=== PATIENT | female | born 1965 | race African-American/Black ===

== ENCOUNTER 2023-01-29 19:00 | Inpatient (IN) | payer MEDICAID ==
[~2023-01-29] VITALS: Ht 170.2 cm; Wt 94.8 kg
[~2023-01-29 19:00] MED LIST: ASPI-1160 PO; CLOP-31 PO; LIP40 PO
[2023-01-29 20:00] VITALS: BP 169/80; PULSE 82; RESP 17; TEMP 99.9
[2023-01-29 20:15] VITALS: BP 167/80; PULSE 82; RESP 18; TEMP 99
[2023-01-29] MEDS ORDERED: MAGNESIUM/ALUMINUM HYDROXIDE/SIMETHICONE 30ML UDC PO PRN (20:30)
[2023-01-29] MEDS ORDERED: ONDANSETRON HCL 4MG/2ML INJ IV PRN (20:30)
[2023-01-29] MEDS ORDERED: SODIUM CHLORIDE 1000MG TABLET PO PRN (20:30)
[2023-01-29] MEDS ORDERED: ACETAMINOPHEN 325MG TABLET PO PRN (20:30)
[2023-01-29] MEDS ORDERED: GUAIFENESIN 200MG/10ML SUGAR FREE UDC PO PRN (20:30)
[2023-01-29] MEDS ORDERED: IPRATROPIUM/ALBUTEROL 0.5-3(2.5)MG/3ML NEB HHN PRN (20:30)
[2023-01-29] MEDS ORDERED: DOCUSATE SODIUM 100MG CAPSULE PO PRN (20:30)
[2023-01-29] MEDS ORDERED: DEXTROSE 50% WATER 50ML SYRINGE IV PRN (21:00)
[2023-01-29] MEDS ORDERED: INSULIN GLARGINE 100 UNITS/ML SUBCUT SCH (22:00)
[2023-01-29] MEDS: BLOOD SUGAR DIAGNOSTIC STRIP TEST SCH (23:27)
[2023-01-29] MEDS: ATORVASTATIN CALCIUM 40MG TABLET PO SCH (23:27)
[2023-01-29] MEDS: FAMOTIDINE 20MG TABLET PO SCH (23:30)
[2023-01-30] MEDS: INSULIN LISPRO 100 UNITS/ML SUBCUT SCH ×7 (00:04→22:00)
[2023-01-30] MEDS: SODIUM CHLORIDE 0.9% 1,000 ML IV SCH ×4 (02:42→18:53)
[2023-01-30 06:49] LABS: BASOPHILS % 0.2 % (0.0-2.0); DIFFERENTIAL COMMENT 0; EOSINOPHILS % 1.9 % (0.0-5.0); HEMATOCRIT. 34.3 % (36.0-48.0); HEMOGLOBIN. 11.4 g/dL (12.0-16.0); LYMPHOCYTES % 24.6 % (20.0-50.0); MEAN CORPUSCULAR HEMOGLOBIN 24.9 pg (28.0-32.0); MEAN CORPUSCULAR HGB CONC 33.2 g/dL (31.0-37.0); MEAN CORPUSCULAR VOLUME 75.2 fL (81.0-99.0); MEAN PLATELET VOLUME 9.7 fl (7.4-10.4); MONOCYTES % 9.3 % (2.0-8.0); PLATELET 156 x1000/uL (130-400); RED BLOOD CELL COUNT 4.56 mill/uL (4.2-5.4); RED CELL DISTRIBUTION WIDTH 13.4 % (11.6-14.6); WHITE BLOOD COUNT 5.3 x1000/uL (4.5-11.0)
[2023-01-30] MEDS: BLOOD SUGAR DIAGNOSTIC STRIP TEST SCH ×4 (07:00→21:30)
[2023-01-30 08:00] VITALS: BP 161/69; PULSE 69; RESP 20; TEMP 97.9
[2023-01-30 08:12] LABS: CHLORIDE 112 mEq/L (98-107); INDEX HEMOLYSI 1 (1-3); INDEX ICTERIC 1 (1-4); INDEX LIPEMIC 1 (1-3); POTASSIUM 3.6 mEq/L (3.5-5.1); SODIUM 141 mEq/L (136-145)
[2023-01-30 08:21] LABS: ALANINE AMINOTRANSFERASE 15 IU/L (13-61); ALBUMIN 2.9 g/dL (3.4-5.0); ASPARTATE AMINOTRANSFERASE 13 IU/L (15-37); BILIRUBIN TOTAL 0.4 mg/dL (0.1-1.0); CARBON DIOXIDE 23 mEq/L (21-32); CREATININE 0.6 mg/dL (0.6-1.3); GLUCOSE 222 mg/dL (70-105); PROTEIN TOTAL 6.1 g/dL (6.0-8.3); UREA NITROGEN BLOOD 10 mg/dL (7-21)
[2023-01-30] MEDS: FAMOTIDINE 20MG TABLET PO SCH ×2 (09:00→21:59)
[2023-01-30] MEDS: ASPIRIN 81MG TABLET PO SCH (09:35)
[2023-01-30] MEDS: CLOPIDOGREL 75MG TABLET PO SCH (09:36)
[2023-01-30] MEDS: ENOXAPARIN 30MG/0.3ML SYR SUBCUT SCH ×2 (09:37→22:00)
[2023-01-30] MEDS: ATORVASTATIN CALCIUM 40MG TABLET PO SCH (21:58)
[2023-01-30] MEDS: INSULIN GLARGINE 100 UNITS/ML SUBCUT SCH (22:00)
[2023-01-30] MEDS: ACETAMINOPHEN 325MG TABLET PO PRN (22:41)
[2023-01-31] MEDS: BLOOD SUGAR DIAGNOSTIC STRIP TEST SCH ×4 (06:30→21:00)
[2023-01-31] MEDS: SODIUM CHLORIDE 0.9% 1,000 ML IV SCH ×3 (07:20→20:40)
[2023-01-31 08:00] VITALS: BP 150/58; PULSE 64; RESP 18; TEMP 98.2
[2023-01-31] MEDS: ASPIRIN 81MG TABLET PO SCH (09:02)
[2023-01-31] MEDS: CLOPIDOGREL 75MG TABLET PO SCH (09:02)
[2023-01-31] MEDS: FAMOTIDINE 20MG TABLET PO SCH ×2 (09:02→22:09)
[2023-01-31] MEDS: ENOXAPARIN 30MG/0.3ML SYR SUBCUT SCH ×2 (09:03→22:11)
[2023-01-31] MEDS: INSULIN LISPRO 100 UNITS/ML SUBCUT SCH ×6 (11:35→22:27)
[2023-01-31 19:57] VITALS: BP 157/64; PULSE 73; RESP 20; TEMP 97.1
[2023-01-31] MEDS: ATORVASTATIN CALCIUM 40MG TABLET PO SCH (22:09)
[2023-01-31] MEDS: INSULIN GLARGINE 100 UNITS/ML SUBCUT SCH (22:17)
[2023-02-01] MEDS: SODIUM CHLORIDE 0.9% 1,000 ML IV SCH ×4 (03:20→23:20)
[2023-02-01] MEDS: BLOOD SUGAR DIAGNOSTIC STRIP TEST SCH ×4 (06:30→21:00)
[2023-02-01] MEDS: INSULIN LISPRO 100 UNITS/ML SUBCUT SCH ×7 (07:58→21:00)
[2023-02-01 08:00] VITALS: BP 144/64; PULSE 81; RESP 20; TEMP 98.1
[2023-02-01] MEDS: ASPIRIN 81MG TABLET PO SCH (09:55)
[2023-02-01] MEDS: ENOXAPARIN 30MG/0.3ML SYR SUBCUT SCH ×2 (09:55→22:53)
[2023-02-01] MEDS: FAMOTIDINE 20MG TABLET PO SCH ×2 (09:55→22:54)
[2023-02-01] MEDS: CLOPIDOGREL 75MG TABLET PO SCH (09:55)
[2023-02-01 12:27] LABS: BASOPHILS % 0.5 % (0.0-2.0); DIFFERENTIAL COMMENT 0; EOSINOPHILS % 2.6 % (0.0-5.0); HEMATOCRIT. 33.5 % (36.0-48.0); LYMPHOCYTES % 29.4 % (20.0-50.0); MEAN CORPUSCULAR HEMOGLOBIN 24.9 pg (28.0-32.0); MEAN CORPUSCULAR HGB CONC 32.9 g/dL (31.0-37.0); MEAN CORPUSCULAR VOLUME 75.6 fL (81.0-99.0); MEAN PLATELET VOLUME 9.4 fl (7.4-10.4); MONOCYTES % 8.4 % (2.0-8.0); NEUTROPHILS % 59.1 % (40.0-76.0); PLATELET 154 x1000/uL (130-400); RED BLOOD CELL COUNT 4.43 mill/uL (4.2-5.4); RED CELL DISTRIBUTION WIDTH 13.5 % (11.6-14.6)
[2023-02-01 12:34] LABS: CHLORIDE 115 mEq/L (98-107); INDEX HEMOLYSI 1 (1-3); INDEX ICTERIC 1 (1-4); INDEX LIPEMIC 1 (1-3); POTASSIUM 3.8 mEq/L (3.5-5.1); SODIUM 144 mEq/L (136-145)
[2023-02-01 12:42] LABS: ALANINE AMINOTRANSFERASE 35 IU/L (13-61); ALBUMIN 2.9 g/dL (3.4-5.0); ASPARTATE AMINOTRANSFERASE 18 IU/L (15-37); BILIRUBIN TOTAL 0.7 mg/dL (0.1-1.0); CALCIUM 8.8 mg/dL (8.5-10.1); CARBON DIOXIDE 25 mEq/L (21-32); CREATININE 0.6 mg/dL (0.6-1.3); GLUCOSE 158 mg/dL (70-105); PROTEIN TOTAL 6.1 g/dL (6.0-8.3); UREA NITROGEN BLOOD 8 mg/dL (7-21)
[2023-02-01 20:00] VITALS: BP 153/72; PULSE 72; RESP 19; TEMP 98
[2023-02-01] MEDS: INSULIN GLARGINE 100 UNITS/ML SUBCUT SCH (22:00)
[2023-02-01] MEDS: ATORVASTATIN CALCIUM 40MG TABLET PO SCH (22:54)
[2023-02-02] MEDS: BLOOD SUGAR DIAGNOSTIC STRIP TEST SCH ×2 (06:53→21:55)
[2023-02-02] MEDS: SODIUM CHLORIDE 0.9% 1,000 ML IV SCH ×2 (06:56→19:20)
[2023-02-02] MEDS: INSULIN LISPRO 100 UNITS/ML SUBCUT SCH ×5 (07:04→21:55)
[2023-02-02 08:00] VITALS: BP 149/65; PULSE 71; RESP 18; TEMP 97.9
[2023-02-02] MEDS: CLOPIDOGREL 75MG TABLET PO SCH (11:38)
[2023-02-02] MEDS: ASPIRIN 81MG TABLET PO SCH (11:38)
[2023-02-02] MEDS: FAMOTIDINE 20MG TABLET PO SCH ×2 (11:38→21:55)
[2023-02-02] MEDS: ENOXAPARIN 30MG/0.3ML SYR SUBCUT SCH ×2 (11:39→21:55)
[2023-02-02] MEDS: ATORVASTATIN CALCIUM 40MG TABLET PO SCH (21:55)
[2023-02-02] MEDS: INSULIN GLARGINE 100 UNITS/ML SUBCUT SCH (22:40)
[2023-02-03] MEDS: SODIUM CHLORIDE 0.9% 1,000 ML IV SCH ×3 (02:00→22:00)
[2023-02-03] MEDS: BLOOD SUGAR DIAGNOSTIC STRIP TEST SCH ×4 (07:26→21:45)
[2023-02-03 08:00] VITALS: BP 174/77; PULSE 67; RESP 18; TEMP 97.4
[2023-02-03] MEDS: INSULIN LISPRO 100 UNITS/ML SUBCUT SCH ×6 (08:14→21:45)
[2023-02-03] MEDS: FAMOTIDINE 20MG TABLET PO SCH ×2 (09:00→21:45)
[2023-02-03] MEDS: ASPIRIN 81MG TABLET PO SCH (09:43)
[2023-02-03] MEDS: CLOPIDOGREL 75MG TABLET PO SCH (09:43)
[2023-02-03] MEDS: ENOXAPARIN 30MG/0.3ML SYR SUBCUT SCH ×2 (09:44→21:45)
[2023-02-03 20:00] VITALS: BP 134/69; PULSE 66; RESP 18; TEMP 98.1
[2023-02-03] MEDS: ATORVASTATIN CALCIUM 40MG TABLET PO SCH (21:45)
[2023-02-03] MEDS: INSULIN GLARGINE 100 UNITS/ML SUBCUT SCH (22:00)
[2023-02-04] MEDS: SODIUM CHLORIDE 0.9% 1,000 ML IV SCH (04:40)
[2023-02-04] MEDS: BLOOD SUGAR DIAGNOSTIC STRIP TEST SCH ×4 (06:21→21:00)
[2023-02-04] MEDS: INSULIN LISPRO 100 UNITS/ML SUBCUT SCH ×7 (06:22→22:36)
[2023-02-04 08:00] VITALS: BP 137/60; PULSE 68; RESP 16; TEMP 97.8
[2023-02-04] MEDS: ASPIRIN 81MG TABLET PO SCH (09:26)
[2023-02-04] MEDS: FAMOTIDINE 20MG TABLET PO SCH ×2 (09:26→22:21)
[2023-02-04] MEDS: CLOPIDOGREL 75MG TABLET PO SCH (09:26)
[2023-02-04] MEDS: ENOXAPARIN 30MG/0.3ML SYR SUBCUT SCH ×2 (09:27→22:23)
[2023-02-04 20:00] VITALS: BP 165/72; PULSE 75; RESP 20; TEMP 96.9
[2023-02-04] MEDS: ATORVASTATIN CALCIUM 40MG TABLET PO SCH (22:21)
[2023-02-04] MEDS: INSULIN GLARGINE 100 UNITS/ML SUBCUT SCH (22:42)
[2023-02-05] MEDS: BLOOD SUGAR DIAGNOSTIC STRIP TEST SCH ×4 (06:04→21:00)
[2023-02-05] MEDS: INSULIN LISPRO 100 UNITS/ML SUBCUT SCH ×7 (06:13→21:00)
[2023-02-05 08:00] VITALS: BP 144/74; PULSE 72; RESP 20; TEMP 97.3
[2023-02-05] MEDS: FAMOTIDINE 20MG TABLET PO SCH ×2 (08:12→21:13)
[2023-02-05] MEDS: ASPIRIN 81MG TABLET PO SCH (08:12)
[2023-02-05] MEDS: CLOPIDOGREL 75MG TABLET PO SCH (08:12)
[2023-02-05] MEDS: ENOXAPARIN 30MG/0.3ML SYR SUBCUT SCH ×2 (08:12→21:13)
[2023-02-05 20:00] VITALS: BP 143/61; PULSE 63; RESP 18; TEMP 98.1
[2023-02-05] MEDS: ATORVASTATIN CALCIUM 40MG TABLET PO SCH (21:14)
[2023-02-05] MEDS: INSULIN GLARGINE 100 UNITS/ML SUBCUT SCH (22:00)
[2023-02-06] MEDS: ACETAMINOPHEN 325MG TABLET PO PRN (03:47)
[2023-02-06] MEDS: BLOOD SUGAR DIAGNOSTIC STRIP TEST SCH ×4 (06:30→21:00)
[2023-02-06] MEDS: INSULIN LISPRO 100 UNITS/ML SUBCUT SCH ×7 (07:00→21:26)
[2023-02-06 08:00] VITALS: BP 126/59; PULSE 58; RESP 20; TEMP 97.6
[2023-02-06] MEDS: ENOXAPARIN 30MG/0.3ML SYR SUBCUT SCH ×2 (08:37→21:00)
[2023-02-06] MEDS: FAMOTIDINE 20MG TABLET PO SCH ×2 (08:37→21:21)
[2023-02-06] MEDS: ASPIRIN 81MG TABLET PO SCH (08:37)
[2023-02-06] MEDS: CLOPIDOGREL 75MG TABLET PO SCH (08:37)
[2023-02-06 09:24] LABS: BASOPHILS % 0.4 % (0.0-2.0); DIFFERENTIAL COMMENT 0; HEMATOCRIT. 35.1 % (36.0-48.0); HEMOGLOBIN. 11.6 g/dL (12.0-16.0); LYMPHOCYTES % 28.2 % (20.0-50.0); MEAN CORPUSCULAR HEMOGLOBIN 24.6 pg (28.0-32.0); MEAN CORPUSCULAR HGB CONC 32.9 g/dL (31.0-37.0); MEAN CORPUSCULAR VOLUME 74.6 fL (81.0-99.0); MEAN PLATELET VOLUME 9.7 fl (7.4-10.4); MONOCYTES % 9.3 % (2.0-8.0); NEUTROPHILS % 60.1 % (40.0-76.0); PLATELET 175 x1000/uL (130-400); RED BLOOD CELL COUNT 4.71 mill/uL (4.2-5.4); RED CELL DISTRIBUTION WIDTH 13.4 % (11.6-14.6); WHITE BLOOD COUNT 5.3 x1000/uL (4.5-11.0)
[2023-02-06 09:46] LABS: CHLORIDE 110 mEq/L (98-107); INDEX HEMOLYSI 1 (1-3); INDEX ICTERIC 1 (1-4); INDEX LIPEMIC 1 (1-3); POTASSIUM 3.7 mEq/L (3.5-5.1); SODIUM 142 mEq/L (136-145)
[2023-02-06 10:03] LABS: ALANINE AMINOTRANSFERASE 37 IU/L (13-61); ASPARTATE AMINOTRANSFERASE 17 IU/L (15-37); BILIRUBIN TOTAL 0.7 mg/dL (0.1-1.0); CALCIUM 9.9 mg/dL (8.5-10.1); CARBON DIOXIDE 28 mEq/L (21-32); CREATININE 0.7 mg/dL (0.6-1.3); GLUCOSE 118 mg/dL (70-105); PHOSPHORUS 3.4 mg/dL (2.5-4.9); PROTEIN TOTAL 6.5 g/dL (6.0-8.3); UREA NITROGEN BLOOD 15 mg/dL (7-21)
[2023-02-06 20:04] VITALS: BP 155/60; PULSE 69; RESP 20; TEMP 97.3
[2023-02-06] MEDS: ATORVASTATIN CALCIUM 40MG TABLET PO SCH (21:20)
[2023-02-06] MEDS: INSULIN GLARGINE 100 UNITS/ML SUBCUT SCH (22:00)
[2023-02-07] MEDS: ACETAMINOPHEN 325MG TABLET PO PRN (04:23)
[2023-02-07] MEDS: INSULIN LISPRO 100 UNITS/ML SUBCUT SCH ×7 (06:13→20:53)
[2023-02-07] MEDS: BLOOD SUGAR DIAGNOSTIC STRIP TEST SCH ×4 (06:30→20:53)
[2023-02-07 08:00] VITALS: BP 108/42; PULSE 66; RESP 18; TEMP 97
[2023-02-07] MEDS: CLOPIDOGREL 75MG TABLET PO SCH (09:52)
[2023-02-07] MEDS: ASPIRIN 81MG TABLET PO SCH (09:52)
[2023-02-07] MEDS: FAMOTIDINE 20MG TABLET PO SCH ×2 (09:52→20:47)
[2023-02-07] MEDS: ENOXAPARIN 30MG/0.3ML SYR SUBCUT SCH ×2 (09:52→20:48)
[2023-02-07] MEDS: AMLODIPINE 2.5MG TABLET PO SCH (10:30)
[2023-02-07 20:26] VITALS: BP 132/60; PULSE 82; RESP 20; TEMP 97.3
[2023-02-07] MEDS: ATORVASTATIN CALCIUM 40MG TABLET PO SCH (20:47)
[2023-02-07] MEDS: INSULIN GLARGINE 100 UNITS/ML SUBCUT SCH (22:01)
[2023-02-08] MEDS: BLOOD SUGAR DIAGNOSTIC STRIP TEST SCH ×4 (06:30→21:00)
[2023-02-08] MEDS: INSULIN LISPRO 100 UNITS/ML SUBCUT SCH ×7 (06:47→21:08)
[2023-02-08 08:00] VITALS: BP 120/64; PULSE 66; RESP 18; TEMP 97.3
[2023-02-08] MEDS: CLOPIDOGREL 75MG TABLET PO SCH (08:52)
[2023-02-08] MEDS: AMLODIPINE 2.5MG TABLET PO SCH (08:53)
[2023-02-08] MEDS: ASPIRIN 81MG TABLET PO SCH (08:53)
[2023-02-08] MEDS: ENOXAPARIN 30MG/0.3ML SYR SUBCUT SCH ×2 (08:53→21:03)
[2023-02-08] MEDS: FAMOTIDINE 20MG TABLET PO SCH ×2 (09:02→21:02)
[2023-02-08 20:00] VITALS: BP 139/56; PULSE 73; RESP 18; TEMP 99.1
[2023-02-08] MEDS: ATORVASTATIN CALCIUM 40MG TABLET PO SCH (21:02)
[2023-02-08] MEDS: INSULIN GLARGINE 100 UNITS/ML SUBCUT SCH (23:15)
[2023-02-09] MEDS: BLOOD SUGAR DIAGNOSTIC STRIP TEST SCH ×4 (05:56→21:30)
[2023-02-09] MEDS: INSULIN LISPRO 100 UNITS/ML SUBCUT SCH ×7 (06:32→21:31)
[2023-02-09 08:00] VITALS: BP 131/55; PULSE 85; RESP 20; TEMP 98.1
[2023-02-09] MEDS: CLOPIDOGREL 75MG TABLET PO SCH (09:03)
[2023-02-09] MEDS: ASPIRIN 81MG TABLET PO SCH (09:03)
[2023-02-09] MEDS: FAMOTIDINE 20MG TABLET PO SCH ×2 (09:03→21:30)
[2023-02-09] MEDS: ENOXAPARIN 30MG/0.3ML SYR SUBCUT SCH ×2 (09:05→21:31)
[2023-02-09] MEDS: AMLODIPINE 2.5MG TABLET PO SCH (09:05)
[2023-02-09 20:00] VITALS: BP 139/67; PULSE 71; RESP 17; TEMP 97.9
[2023-02-09] MEDS: ATORVASTATIN CALCIUM 40MG TABLET PO SCH (21:30)
[2023-02-09] MEDS: INSULIN GLARGINE 100 UNITS/ML SUBCUT SCH (22:17)
[2023-02-10] MEDS: BLOOD SUGAR DIAGNOSTIC STRIP TEST SCH ×4 (06:55→21:35)
[2023-02-10] MEDS: INSULIN LISPRO 100 UNITS/ML SUBCUT SCH ×7 (06:56→21:51)
[2023-02-10 08:00] VITALS: BP 131/65; PULSE 62; RESP 17; TEMP 97.1
[2023-02-10] MEDS: FAMOTIDINE 20MG TABLET PO SCH ×2 (09:58→21:36)
[2023-02-10] MEDS: CLOPIDOGREL 75MG TABLET PO SCH (09:58)
[2023-02-10] MEDS: ASPIRIN 81MG TABLET PO SCH (09:58)
[2023-02-10] MEDS: ENOXAPARIN 30MG/0.3ML SYR SUBCUT SCH ×2 (09:59→21:37)
[2023-02-10] MEDS: AMLODIPINE 2.5MG TABLET PO SCH (09:59)
[2023-02-10] MEDS ORDERED: ONDANSETRON 4MG ODT PO PRN ×2 (11:10→12:04)
[2023-02-10 20:00] VITALS: BP 155/55
[2023-02-10 20:01] VITALS: PULSE 71; RESP 20; TEMP 96.9
[2023-02-10] MEDS: ATORVASTATIN CALCIUM 40MG TABLET PO SCH (21:36)
[2023-02-10] MEDS: INSULIN GLARGINE 100 UNITS/ML SUBCUT SCH (21:49)
[2023-02-11] MEDS: BLOOD SUGAR DIAGNOSTIC STRIP TEST SCH ×4 (06:58→21:42)
[2023-02-11] MEDS: INSULIN LISPRO 100 UNITS/ML SUBCUT SCH ×7 (06:58→21:55)
[2023-02-11] MEDS: AMLODIPINE 2.5MG TABLET PO SCH (07:55)
[2023-02-11] MEDS: ASPIRIN 81MG TABLET PO SCH (07:55)
[2023-02-11] MEDS: CLOPIDOGREL 75MG TABLET PO SCH (07:56)
[2023-02-11] MEDS: FAMOTIDINE 20MG TABLET PO SCH ×2 (07:56→21:44)
[2023-02-11 08:00] VITALS: BP 140/80; PULSE 62; RESP 18; TEMP 97.1
[2023-02-11] MEDS: ENOXAPARIN 30MG/0.3ML SYR SUBCUT SCH ×2 (09:00→21:45)
[2023-02-11 09:48] LABS: HEMATOCRIT 33.5 % (36.0-48.0); MEAN CORPUSCULAR HEMOGLOBIN 24.7 pg (28.0-32.0); MEAN CORPUSCULAR HGB CONC 32.9 g/dL (31.0-37.0); PLATELET 172 x1000/uL (130-400); RED BLOOD CELL COUNT 4.47 mill/uL (4.2-5.4); RED CELL DISTRIBUTION WIDTH 13.9 % (11.6-14.6); WHITE BLOOD COUNT 5.3 x1000/uL (4.5-11.0)
[2023-02-11 09:58] LABS: CHLORIDE 110 mEq/L (98-107); INDEX HEMOLYSI 1 (1-3); INDEX ICTERIC 1 (1-4); INDEX LIPEMIC 1 (1-3); POTASSIUM 3.8 mEq/L (3.5-5.1); SODIUM 141 mEq/L (136-145)
[2023-02-11 10:08] LABS: ALANINE AMINOTRANSFERASE 32 IU/L (13-61); ALBUMIN 3.1 g/dL (3.4-5.0); ASPARTATE AMINOTRANSFERASE 15 IU/L (15-37); BILIRUBIN TOTAL 0.3 mg/dL (0.1-1.0); CALCIUM 9.6 mg/dL (8.5-10.1); CARBON DIOXIDE 28 mEq/L (21-32); CREATININE 0.6 mg/dL (0.6-1.3); GLUCOSE 163 mg/dL (70-105); PROTEIN TOTAL 6.2 g/dL (6.0-8.3); UREA NITROGEN BLOOD 16 mg/dL (7-21)
[2023-02-11 20:00] VITALS: BP 156/75; PULSE 74; RESP 18; TEMP 97.9
[2023-02-11] MEDS: ATORVASTATIN CALCIUM 40MG TABLET PO SCH (21:44)
[2023-02-11] MEDS: INSULIN GLARGINE 100 UNITS/ML SUBCUT SCH (21:53)
[2023-02-12] LABS: CLARITY URINE CLEAR (CLEAR); COLOR URINE YELLOW (YELLOW); GLUCOSE URINE TRACE (NEGATIVE); KETONES URINE NEGATIVE (NEGATIVE); LEUKOCYTE ESTERASE URINE NEGATIVE (NEGATIVE); NITRITE URINE NEGATIVE (NEGATIVE); OCCULT BLOOD URINE NEGATIVE (NEGATIVE); PH URINE 5.5 (4.5-8.0); PROTEIN URINE NEGATIVE (NEGATIVE); SPECIFIC GRAVITY URINE 1.015 (1.005-1.030); UROBILINOGEN URINE 0.2 E.U./dL (0.2-1.0)
[2023-02-12 02:06] LABS: SQUAMOUS EPITHELIAL CELL URINE FEW /lpf (RARE/1+)
[2023-02-12 02:08] LABS: RBC URINE 0-2 /hpf (0-2); WBC URINE 0-2 /hpf (0-2)
[2023-02-12 02:09] LABS: BACTERIA URINE TRACE
[2023-02-12] MEDS: BLOOD SUGAR DIAGNOSTIC STRIP TEST SCH ×2 (06:12→11:15)
[2023-02-12 08:00] VITALS: BP 140/75; PULSE 77; RESP 19; TEMP 97.9
[2023-02-12] MEDS: AMLODIPINE 2.5MG TABLET PO SCH (10:15)
[2023-02-12] MEDS: ASPIRIN 81MG TABLET PO SCH (10:15)
[2023-02-12] MEDS: FAMOTIDINE 20MG TABLET PO SCH (10:15)
[2023-02-12] MEDS: ENOXAPARIN 30MG/0.3ML SYR SUBCUT SCH (10:15)
[2023-02-12] MEDS: CLOPIDOGREL 75MG TABLET PO SCH (10:16)
[2023-02-12 10:39] VITALS: BP 123/63; PULSE 95; TEMP 97.1; O2SAT 98
[2023-02-12] MEDS ORDERED: AMLO2.5T45 PO (12:15)
[2023-02-12] MEDS: INSULIN LISPRO 100 UNITS/ML SUBCUT SCH ×2 (12:34)
== END 2023-02-12 13:20 | disposition home or self-care (01) | DRG 45 ==
LOC: 4WST 19:00
PROVIDERS: ADMIT Psychiatry & Neurology Neurology; ATTEND Internal Medicine
DX: I63.29 Cerebral infarction due to unspecified occlusion or stenosis of other precerebral arteries (principal); E87.1 Hypo-osmolality and hyponatremia; I10 Essential (primary) hypertension; E78.5 Hyperlipidemia, unspecified; D57.3 Sickle-cell trait; E11.65 Type 2 diabetes mellitus with hyperglycemia; R26.9 Unspecified abnormalities of gait and mobility; Z60.2 Problems related to living alone; R53.1 Weakness; R29.810 Facial weakness; I69.351 Hemiplegia and hemiparesis following cerebral infarction affecting right dominant side; Z68.32 Body mass index [BMI] 32.0-32.9, adult; Z91.81 History of falling; Z79.82 Long term (current) use of aspirin; Z88.0 Allergy status to penicillin
CPT/HCPCS: 36415; 80053; 81003; 82962; 83735; 84100; 85025; 85027; 92523; 92610; 93970; 97110; 97112; 97116; 97162; 97165; 97530; 97535; J1650; J1815; J7030